=== PATIENT | male | born 1955 | race Caucasian/White ===

== ENCOUNTER 2017-08-25 15:24 | Inpatient (IN) | payer OTHER ==
[2017-08-25] VITALS (12 sets, daily range): BP systolic 104–146
[~2017-08-25] VITALS: Ht 185.4 cm; Wt 95.7 kg
[2017-08-25] MEDS ORDERED: FLUMAZENIL 0.1 MG/ML IVP ONE ×2 (15:30→19:40)
[2017-08-25] MEDS ORDERED: NALOXONE HCL 2 MG/2 ML SYR IVP ONE (15:30)
[2017-08-25] MEDS ORDERED: NACL 0.9% 1,000 ML IV ONE ×2 (15:30→17:00)
[2017-08-25] MEDS ORDERED: ETOMIDATE 20 MG/ 10 ML VIAL (AMIDATE) IVP ONE (15:30)
[2017-08-25] MEDS ORDERED: SUCCINYLCHOLINE CHLORIDE 20 MG/ML(QUELICIN) IVP ONE (15:30)
[2017-08-25] MEDS ORDERED: ONDANSETRON HCL 4 MG/2 ML VIAL IVP ONE (15:30)
[2017-08-25] MEDS ORDERED: PROPOFOL DRIP 100 ML IV ONE ×2 (15:45→16:15)
[2017-08-25 15:54] LABS: HEMATOCRIT 50.4 % (36-54); HEMOGLOBIN 16.8 g/dL (14.0-18.0); MEAN CORPUSCULAR HEMOGLOBIN 31 pg (27-31); MEAN CORPUSCULAR HGB CONC 33 % (32-36); MEAN CORPUSCULAR VOLUME 92 fL (79.0-98.0); PLATELET COUNT (AUTO) 245 K/uL (130-430); RED BLOOD CELL COUNT(AUTO) 5.46 MIL/uL (4.2-6.2); RED CELL DISTRIBUTION WIDTH 11.9 % (9.0-15.0); WHITE BLOOD COUNT (AUTO) 18.3 K/uL (4.8-10.8)
[2017-08-25] MEDS ORDERED: OCTREOTIDE ACETATE 500 MCG in NS 247.5 ML IV ONE (16:00)
[2017-08-25] MEDS ORDERED: FAMOTIDINE PF 20 MG/2 ML VIAL IVP ONE (16:00)
[2017-08-25 16:30] LABS: BILIRUBIN,URINE NEGATIVE (NEGATIVE); BLOOD, URINE NEGATIVE (NEGATIVE); CLARITY/URINE CLEAR (CLEAR); COLOR,URINE YELLOW (YELLOW); GLUCOSE,URINE NEGATIVE (NEGATIVE); KETONES,URINE NEGATIVE (NEGATIVE); LEUKOCYTE ESTERASE ,URINE NEGATIVE (NEGATIVE); NITRITE, URINE NEGATIVE (NEGATIVE); PH,URINE 5.5 (5.0-8.0); PROTEIN URINE NEGATIVE (NEGATIVE); UROBILINOGEN,URINE 0.2 (0.2-1.0)
[2017-08-25] MEDS ORDERED: VANCOMYCIN HCL 1,000 MG in NS 250 ML IV ONE (16:30)
[2017-08-25] MEDS ORDERED: PIPERACILLIN/TAZO 3.375 GM in NS 50 ML IV ONE (16:30)
[2017-08-25 16:32] LABS: ATYPICAL LYMPHOCYTES % 0 % (0-0); BAND % (MANUAL) 15 % (0-6); BASOPHILS % (MANUAL) 0 % (0-2); EOSINOPHILS % (MANUAL) 0 % (0-7); LYMPHOCYTES % (MANUAL) 8 % (20-46); METAMYELOCYTES % 1 % (0-0); MONOCYTES % (MANUAL) 6 % (0-11)
[2017-08-25 16:48] LABS: BENZODIAZEPINE, URINE POSITIVE (NEG <=150); OPIATE, URINE POSITIVE (NEG <=100)
[2017-08-25 16:48] LABS: ANION GAP 9 (5-15); CALCIUM 8.9 mg/dL (8.4-11.0); CHLORIDE 102 mmol/L (98-107); CREATININE 4.52 mg/dL (0.55-1.30); GLUCOSE 119 mg/dL (70-99); POTASSIUM 5.4 mmol/L (3.5-5.1); SODIUM SERUM 134 mmol/L (136-145); UREA NITROGEN, BLOOD 62 mg/dL (8-21)
[2017-08-25 16:49] LABS: BARBITURATE, URINE NEGATIVE (NEG <=200); CANNABINOID, URINE NEGATIVE (NEG <=50); COCAINE, URINE NEGATIVE (NEG <=150); METHAMPHETAMINES SCREEN,URINE NEGATIVE (NEG <=500); PHENCYCLIDINE SCREEN,URINE NEGATIVE (NEG <=25); UR TRICYCLIC ANTIDEPRESSANTS NEGATIVE (NEG <=300); URINE AMPHETAMINE NEGATIVE (NEG <=500); URINE METHADONE NEGATIVE (NEG <=200); URINE OXYCODONE SCREEN NEGATIVE (NEG <=100); URINE PROPOXYPHENE SCREEN NEGATIVE (NEG <=300)
[2017-08-25 16:51] LABS: GFR AFRICAN AMERICAN 17 mL/min (>90)
[2017-08-25 16:54] LABS: INR 1.2 (0.80-1.20); PROTHROMBIN TIME 12.7 SECS (9.5-12.5)
[2017-08-25] MEDS ORDERED: NOREPINEPHRINE BITARTRATE 4 MG in NS 246 ML IV PRN (17:00)
[2017-08-25] MEDS ORDERED: NOREPINEPHRINE 4 MG/4 ML VIAL IV ONE (17:07)
[2017-08-25] MEDS ORDERED: ASPI-1063 PO (17:13)
[2017-08-25] MEDS ORDERED: LEVO750T45 PO (17:13)
[2017-08-25] MEDS ORDERED: LIOT5TAB10 PO (17:13)
[2017-08-25] MEDS ORDERED: HYD10 PO (17:13)
[2017-08-25] MEDS ORDERED: DIAZ10TA4 PO (17:13)
[2017-08-25] MEDS ORDERED: LEVO100T PO (17:13)
[2017-08-25] MEDS ORDERED: AMLO1CAP5 PO (17:13)
[2017-08-25] MEDS ORDERED: FENO45CA PO (17:13)
[2017-08-25] MEDS ORDERED: RANI-281 PO (17:13)
[2017-08-25] MEDS ORDERED: [UNRECOGNIZED DRUG - OTHER] TP (17:13)
[2017-08-25] MEDS ORDERED: ERGO500043 PO (17:13)
[2017-08-25] MEDS ORDERED: TIZA4TAB11 PO (17:13)
[2017-08-25] MEDS ORDERED: DUTA0.5C PO (17:13)
[2017-08-25] MEDS ORDERED: MORP100T24 PO (17:13)
[2017-08-25] MEDS ORDERED: NEU300 PO (17:13)
[2017-08-25] MEDS ORDERED: HYDR4TAB26 PO (17:13)
[2017-08-25] MEDS ORDERED: ONDA4TAB5 PO (17:13)
[2017-08-25 17:14] LABS: ALANINE AMINOTRANSFERASE 42 U/L (12-78); ASPARTATE AMINOTRANSFERASE 71 U/L (10-37); TOTAL BILIRUBIN 0.6 mg/dL (0.0-1.0)
[2017-08-25] MEDS ORDERED: SODIUM POLYSTYRENE SULFONATE 15 GM/60 ML UDBTL NG ONE ×2 (17:15→18:45)
[2017-08-25] MEDS ORDERED: DEXTROSE 50% JECT 50 ML DISP.SYRIN IVP ONE (17:15)
[2017-08-25] MEDS ORDERED: ALBUTEROL SULFATE 0.083% 2.5 MG/3 ML VIAL.NEB INH ONE (17:15)
[2017-08-25] MEDS ORDERED: MIDAZOLAM HCL 5 MG/5 ML VIAL IVP ONE (17:15)
[2017-08-25] MEDS ORDERED: CALCIUM GLUCONATE 1 GM in NS 100 ML IV ONE (17:15)
[2017-08-25] MEDS ORDERED: INSULIN REGULAR, HUMAN 100 UNITS/ML, 10 ML VIAL IV ONE (17:15)
[2017-08-25 17:16] LABS: ACETAMINOPHEN < 1 ug/mL (1-30); ALCOHOL, BLOOD < 3 mg/dL (<10)
[2017-08-25 17:18] LABS: CKMB RELATIVE INDEX 1.7 (0.0-2.9); CREATINE KINASE MB 22.8 ng/mL (0-3.6)
[2017-08-25] MEDS ORDERED: PIPERACILLIN/TAZOBACTAM 3.375 GM/VIAL (ZOSYN) IV ONE (17:30)
[2017-08-25] MEDS ORDERED: VANCOMYCIN HCL 1000 MG/VIAL IV ONE (17:30)
[2017-08-25] MEDS ORDERED: INSULIN REGULAR, HUMAN 10 UNITS/0.1 ML INJ ONE (17:59)
[2017-08-25] MEDS ORDERED: D5/0.45 NS 1,000 ML IV SCH (18:30)
[2017-08-25] MEDS ORDERED: *LOVENOX0.75MG/KG Q12H/PHARMACY XX ONE (18:30)
[2017-08-25] MEDS ORDERED: GABAPENTIN 300 MG CAPSULE PO SCH (18:45)
[2017-08-25] MEDS ORDERED: PANTOPRAZOLE SODIUM 40 MG/VIAL (PROTONIX) IVP ONE (18:45)
[2017-08-25] MEDS ORDERED: DIAZEPAM 5 MG TABLET (VALIUM) PO PRN (18:45)
[2017-08-25] MEDS: ENOXAPARIN SODIUM 80 MG/0.8 ML SYRINGE SUBCUT SCH (19:22)
[2017-08-25] MEDS ORDERED: NALOXONE HCL 0.4 MG/ML AMP (NARCAN) ONE (19:51)
[2017-08-25] MEDS: SODIUM BICARBONATE 8.4% JECT 100 MEQ in D5W 1,000 ML IV SCH (20:11)
[2017-08-25] MEDS ORDERED: SODIUM BICARBONATE 8.4% JECT 50 MEQ/50 ML SYRINGE ONE (20:14)
[2017-08-25] MEDS ORDERED: IPRATROPIUM/ALBUTEROL SULFATE 3 ML AMPUL.NEB INH PRN (23:45)
[2017-08-26] VITALS (32 sets, daily range): BP systolic 102–163
[2017-08-26] MEDS: IPRATROPIUM/ALBUTEROL SULFATE 3 ML AMPUL.NEB INH SCH ×4 (01:00→20:13)
[2017-08-26] MEDS ORDERED: SODIUM BICARBONATE 8.4% JECT 50 MEQ/50 ML SYRINGE ONE (01:50)
[2017-08-26] MEDS: SODIUM BICARBONATE 8.4% JECT 100 MEQ in D5W 1,000 ML IV SCH ×2 (01:51→07:56)
[2017-08-26 02:55] LABS: CALCIUM 8.1 mg/dL (8.4-11.0); CREATININE 2.7 mg/dL (0.55-1.30); POTASSIUM 4.1 mmol/L (3.5-5.1)
[2017-08-26 03:17] LABS: ALBUMIN 2.5 g/dL (3.4-4.8); PHOSPHORUS 3.4 mg/dL (2.7-4.5); TOTAL BILIRUBIN 0.4 mg/dL (0.0-1.0)
[2017-08-26] MEDS: MORPHINE 4 MG/ML INJ. SYRINGE IVP PRN (04:24)
[2017-08-26] MEDS: LEVOTHYROXINE SODIUM 0.1 MG TABLET PO SCH (06:29)
[2017-08-26 06:42] LABS: HEMATOCRIT 41.5 % (36-54); MEAN CORPUSCULAR HEMOGLOBIN 32 pg (27-31); MEAN CORPUSCULAR HGB CONC 34 % (32-36); MEAN CORPUSCULAR VOLUME 94 fL (79.0-98.0); PLATELET COUNT (AUTO) 165 K/uL (130-430); RED BLOOD CELL COUNT(AUTO) 4.41 MIL/uL (4.2-6.2); RED CELL DISTRIBUTION WIDTH 11.8 % (9.0-15.0); WHITE BLOOD COUNT (AUTO) 10.6 K/uL (4.8-10.8)
[2017-08-26] MEDS: PANTOPRAZOLE SODIUM 40 MG/VIAL (PROTONIX) IVP SCH (09:19)
[2017-08-26] MEDS: ASPIRIN 81 MG TABLET(ECOTRIN) PO SCH (09:19)
[2017-08-26] MEDS: HYDROCORTISONE 10 MG TABLET (CORTEF) PO SCH (09:20)
[2017-08-26] MEDS: DUTASTERIDE 0.5 MG CAPSULE (AVODART) PO SCH (09:20)
[2017-08-26 10:22] LABS: BAND % (MANUAL) 12 % (0-6); BASOPHILS % (MANUAL) 0 % (0-2); EOSINOPHILS % (MANUAL) 0 % (0-7); LYMPHOCYTES % (MANUAL) 14 % (20-46); MONOCYTES % (MANUAL) 4 % (0-11)
[2017-08-26] MEDS ORDERED: VANCOMYCIN HCL 1 GM/NS PREMIX 250 ML IV SCH ×3 (11:00)
[2017-08-26] MEDS ORDERED: CEFEPIME 1 GM/DEXT-ISO-OSM 50 ML IV SCH (11:00)
[2017-08-26] MEDS: methylPREDNISolone SOD SUCC/PF 62.5 MG/ML VIAL IVP SCH ×3 (12:00→18:30)
[2017-08-26] MEDS ORDERED: FUROSEMIDE 20 MG/2 ML VIAL IVP ONE (12:30)
[2017-08-26] MEDS ORDERED: VANCOMYCIN HCL 1 GM/NS PREMIX 250 ML IV ONE (13:00)
[2017-08-26] MEDS: CEFEPIME 1 GM in D5W 50 ML IV SCH (13:11)
[2017-08-26] MEDS: LEVOFLOXACIN 500 MG/D5W 100 ML IV SCH (13:11)
[2017-08-26] MEDS: D5/0.45 NS 1,000 ML IV SCH (13:12)
[2017-08-26 15:38] LABS: CALCIUM 8.6 mg/dL (8.4-11.0); CREATININE 1.51 mg/dL (0.55-1.30); POTASSIUM 3.6 mmol/L (3.5-5.1)
[2017-08-26 16:07] LABS: CKMB RELATIVE INDEX 1.8 (0.0-2.9); CREATINE KINASE MB 36.7 ng/mL (0-3.6)
[2017-08-26] MEDS: ENOXAPARIN SODIUM 80 MG/0.8 ML SYRINGE SUBCUT SCH (18:30)
[2017-08-27] VITALS (19 sets, daily range): BP systolic 105–151
[2017-08-27] MEDS ORDERED: MINERAL OIL 133 ML ENEMA RC ONE (00:45)
[2017-08-27] MEDS: methylPREDNISolone SOD SUCC/PF 62.5 MG/ML VIAL IVP SCH ×2 (01:23→06:08)
[2017-08-27] MEDS: CEFEPIME 1 GM in D5W 50 ML IV SCH ×2 (01:25→13:22)
[2017-08-27] MEDS: IPRATROPIUM/ALBUTEROL SULFATE 3 ML AMPUL.NEB INH SCH ×7 (03:00→23:57)
[2017-08-27] MEDS: D5/0.45 NS 1,000 ML IV SCH ×4 (06:07→22:22)
[2017-08-27] MEDS: LEVOTHYROXINE SODIUM 0.1 MG TABLET PO SCH (06:08)
[2017-08-27 06:52] LABS: HEMATOCRIT 43.7 % (36-54); HEMOGLOBIN 14.4 g/dL (14.0-18.0); MEAN CORPUSCULAR HEMOGLOBIN 31 pg (27-31); MEAN CORPUSCULAR HGB CONC 33 % (32-36); MEAN CORPUSCULAR VOLUME 93 fL (79.0-98.0); PLATELET COUNT (AUTO) 169 K/uL (130-430); RED BLOOD CELL COUNT(AUTO) 4.68 MIL/uL (4.2-6.2); RED CELL DISTRIBUTION WIDTH 11.9 % (9.0-15.0); WHITE BLOOD COUNT (AUTO) 6.1 K/uL (4.8-10.8)
[2017-08-27 07:09] LABS: POTASSIUM 3.6 mmol/L (3.5-5.1)
[2017-08-27 07:10] LABS: ALBUMIN 2.8 g/dL (3.4-4.8); CREATININE 1.13 mg/dL (0.55-1.30); TOTAL BILIRUBIN 0.4 mg/dL (0.0-1.0)
[2017-08-27] MEDS: DUTASTERIDE 0.5 MG CAPSULE (AVODART) PO SCH (09:22)
[2017-08-27] MEDS: DOCUSATE SODIUM 250 MG CAPSULE PO SCH ×2 (09:22→21:13)
[2017-08-27] MEDS: ASPIRIN 81 MG TABLET(ECOTRIN) PO SCH (09:22)
[2017-08-27] MEDS: PANTOPRAZOLE SODIUM 40 MG/VIAL (PROTONIX) IVP SCH (09:23)
[2017-08-27] MEDS: HYDROCORTISONE 10 MG TABLET (CORTEF) PO SCH (09:23)
[2017-08-27 11:42] LABS: ATYPICAL LYMPHOCYTES % 0 % (0-0); BAND % (MANUAL) 25 % (0-6); BASOPHILS % (MANUAL) 0 % (0-2); EOSINOPHILS % (MANUAL) 0 % (0-7); LYMPHOCYTES % (MANUAL) 2 % (20-46); MONOCYTES % (MANUAL) 4 % (0-11)
[2017-08-27] MEDS: LEVOFLOXACIN 500 MG/D5W 100 ML IV SCH (12:09)
[2017-08-27] MEDS: VANCOMYCIN HCL 1,000 MG in NS 250 ML IV SCH (16:55)
[2017-08-27] MEDS ORDERED: ENOXAPARIN SODIUM 40 MG/0.4 ML SYRINGE ONE (18:39)
[2017-08-27] MEDS ORDERED: ENOXAPARIN SODIUM 40 MG/0.4 ML SYRINGE SUBCUT SCH (19:00)
[2017-08-27] MEDS ORDERED: methylPREDNISolone SOD SUCC/PF 62.5 MG/ML VIAL IVP SCH (21:00)
[2017-08-27] MEDS: methylPREDNISolone SOD SUCC 40 MG/ML VIAL IVP SCH (21:13)
[2017-08-27] MEDS: MORPHINE 4 MG/ML INJ. SYRINGE IVP PRN (22:17)
[2017-08-27] MEDS: LORazepam 2 MG/ML VIAL IVP PRN (22:22)
[2017-08-28] VITALS (7 sets, daily range): BP systolic 121–140
[2017-08-28] MEDS: CEFEPIME 1 GM in D5W 50 ML IV SCH ×2 (00:36→13:08)
[2017-08-28] MEDS: IPRATROPIUM/ALBUTEROL SULFATE 3 ML AMPUL.NEB INH SCH ×4 (03:00→15:17)
[2017-08-28] MEDS: VANCOMYCIN HCL 1,000 MG in NS 250 ML IV SCH (04:05)
[2017-08-28] MEDS: LORazepam 2 MG/ML VIAL IVP PRN (04:47)
[2017-08-28] MEDS: MORPHINE 4 MG/ML INJ. SYRINGE IVP PRN ×2 (05:04→08:46)
[2017-08-28 06:43] LABS: BASOPHILS # (AUTO) 0.1 K/uL (0.0-0.2); BASOPHILS % (AUTO) 0.7 % (0.0-2.0); HEMATOCRIT 43.2 % (36-54); HEMOGLOBIN 14.5 g/dL (14.0-18.0); LYMPHOCYTES # (AUTO) 0.6 K/uL (1.0-5.5); LYMPHOCYTES % (AUTO) 7.7 % (20.5-51.5); MEAN CORPUSCULAR HEMOGLOBIN 31 pg (27-31); MEAN CORPUSCULAR HGB CONC 34 % (32-36); MEAN CORPUSCULAR VOLUME 93 fL (79.0-98.0); MONOCYTES # (AUTO) 0.4 K/uL (0.0-1.0); MONOCYTES % (AUTO) 4.8 % (1.7-9.3); NEUTROPHILS % (AUTO) 86.8 % (40.0-70.0); PLATELET COUNT (AUTO) 182 K/uL (130-430); RED BLOOD CELL COUNT(AUTO) 4.64 MIL/uL (4.2-6.2); RED CELL DISTRIBUTION WIDTH 11.9 % (9.0-15.0); WHITE BLOOD COUNT (AUTO) 8.1 K/uL (4.8-10.8)
[2017-08-28 06:57] LABS: CALCIUM 8.7 mg/dL (8.4-11.0); CREATININE 0.91 mg/dL (0.55-1.30); POTASSIUM 3.7 mmol/L (3.5-5.1)
[2017-08-28] MEDS: LEVOTHYROXINE SODIUM 0.1 MG TABLET PO SCH (07:01)
[2017-08-28 07:19] LABS: ALBUMIN 2.6 g/dL (3.4-4.8); TOTAL BILIRUBIN 0.3 mg/dL (0.0-1.0)
[2017-08-28 07:56] LABS: CKMB RELATIVE INDEX 0.7 (0.0-2.9); CREATINE KINASE MB 2.9 ng/mL (0-3.6)
[2017-08-28] MEDS: DUTASTERIDE 0.5 MG CAPSULE (AVODART) PO SCH (09:00)
[2017-08-28] MEDS: DOCUSATE SODIUM 250 MG CAPSULE PO SCH (09:50)
[2017-08-28] MEDS: HYDROCORTISONE 10 MG TABLET (CORTEF) PO SCH (09:50)
[2017-08-28] MEDS: ASPIRIN 81 MG TABLET(ECOTRIN) PO SCH (09:50)
[2017-08-28] MEDS: methylPREDNISolone SOD SUCC 40 MG/ML VIAL IVP SCH (09:51)
[2017-08-28] MEDS: PANTOPRAZOLE SODIUM 40 MG/VIAL (PROTONIX) IVP SCH (09:51)
[2017-08-28] MEDS: D5/0.45 NS 1,000 ML IV SCH (13:08)
[2017-08-28] MEDS: LEVOFLOXACIN 500 MG/D5W 100 ML IV SCH (13:55)
[2017-08-30 20:23] LABS: MYCOPLASMA PNEUMONIAE IgM <770 U/mL (0-769)
[2017-08-30 22:17] LABS: LEGIONELLA PNEUMOPHILIA AB <0.91 OD ratio (0.00-0.90)
== END 2017-08-28 17:25 | disposition home or self-care (01) | DRG 871 ==
LOC: SED 15:24 → SIC 16:34 → STU 08-27 15:00
PROVIDERS: ADMIT Internal Medicine; ATTEND Internal Medicine
PROC: 5A1945Z Respiratory Ventilation, 24-96 Consecutive Hours (ICD-10-PCS; principal; 2017-08-25)
PROC: 0BH17EZ Insertion of Endotracheal Airway into Trachea, Via Natural or Artificial Opening (ICD-10-PCS; 2017-08-25)
DX: A41.9 Sepsis, unspecified organism (principal); I21.4 Non-ST elevation (NSTEMI) myocardial infarction; J96.00 Acute respiratory failure, unspecified whether with hypoxia or hypercapnia; N17.0 Acute kidney failure with tubular necrosis; G93.40 Encephalopathy, unspecified; J18.9 Pneumonia, unspecified organism; E86.0 Dehydration; E27.1 Primary adrenocortical insufficiency; M46.26 Osteomyelitis of vertebra, lumbar region; T40.691A Poisoning by other narcotics, accidental (unintentional), initial encounter; Y92.89 Other specified places as the place of occurrence of the external cause; T40.601A Poisoning by unspecified narcotics, accidental (unintentional), initial encounter; E03.9 Hypothyroidism, unspecified; E29.1 Testicular hypofunction; F17.200 Nicotine dependence, unspecified, uncomplicated; F41.9 Anxiety disorder, unspecified; G89.4 Chronic pain syndrome; I10 Essential (primary) hypertension; J45.909 Unspecified asthma, uncomplicated; K21.9 Gastro-esophageal reflux disease without esophagitis; Z79.891 Long term (current) use of opiate analgesic; Z82.49 Family history of ischemic heart disease and other diseases of the circulatory system; Z85.47 Personal history of malignant neoplasm of testis; Z86.14 Personal history of Methicillin resistant Staphylococcus aureus infection; Z96.89 Presence of other specified functional implants; E86.1 Hypovolemia; M54.5 Low back pain
CPT/HCPCS: 36415; 36600; 70450-TC; 71010; 76770; 78579; 78580-TC; 80048; 80053; 80061; 80202-TC; 80307; 81003; 82550-TC; 82553-TC; 82803-TC; 83605; 83735-TC; 83880; 84100-TC; 84484; 85007; 85025; 85027; 85379; 85610-TC; 85730-TC; 86713; 86738; 87040-TC; 87070-TC; 87081; 87186-TC; 87205-TC; 93005; 93306; 93970; 94002; 94003; 94640; 94760; 96361; 96365; 96367; 96368; 96375; 99291; 99292; A9539; A9540; C9113; G0480; G0481; G0482; J0330; J0610; J0692; J1030; J1650; J1815; J1940; J1956; J2060; J2250; J2270; J2310; J2543; J2930; J3370; J3490; J7030; J7050; J7060